=== PATIENT | female | born 1990 | race Caucasian/White ===

== ENCOUNTER 2016-07-31 01:26 | Emergency (ER) | payer MEDICAID, OTHER ==
[~2016-07-31] VITALS: Ht 175.3 cm; Wt 63.5 kg
--- OUTSIDE RECORDS SUMMARY | 2016-07-31 01:33 | XMS REPORT ---
Author Author ELFEGO BRADY Organization [employer] Address Unknown Phone Unavailable Care Team Providers Care Band Cutter Name Role Phone ELFEGO BRADY CP Unavailable Allergies No Known Allergies Problems Problem Type Condition Code Onset Dates Condition Status Problem Knee pain, bilateral M25.561 Active Medications Medication Code System Code Instructions Start Date End Date Status Dosage Fluoxetine HCl [facility] [address]-04 20 mg Orally Once a day in the morning 1 tablet Results No Known Results Summary Purpose [employer] Submission
[2016-07-31] MEDS ORDERED: AMOXICILLIN 500 MG (POLYMOX) CAP PO STA (03:02)
[2016-07-31] MEDS ORDERED: HYDROcodone/APAP 5 MG/325 MG (LORTAB) TAB PO ONE (03:15)
[2016-07-31] MEDS ORDERED: LIDOCAINE 2% VISCOUS 15 ML UDC MM ONE (03:15)
[2016-07-31] MEDS ORDERED: AMOX500C2 PO (03:26)
--- NOTE | 2016-07-31 03:26 | ED General ---
General Chief Complaint: Dental Problems/Pain Stated Complaint: JAW PAIN Nursing Triage Note: r dental pain x 6 days Nursing Sepsis Screen: No Definite Risk Source of Information: Patient Exam Limitations: No Limitations History of Present Illness Time Seen by Provider: 02:30 Initial Comments This 26-year-old woman presents in distress due to pain in the right upper mouth that radiates to the ear and jaw. She believes this is due to a cracked tooth. She has seen a dentist and was advised to have a root canal. However, she cannot afford the root canal. She finished a course of antibiotics about 2 months ago for the same problem. Pain has worsened in recent days. Allergies and Home Medications Allergies Coded Allergies: No Known Drug Allergies (Unverified , 06/19/10) Home Medications Amoxicillin 500 Mg Capsule #40 1,000 MG PO BID Prescribed by: MATTHEW STACY on 07/31/16 0326 Constitutional: no symptoms reported EENTM: see HPI : No Skin: no symptoms reported Past Mrkzekq-Jfapqf-Rikkqv Hx Patient Social History Alcohol Use: Denies Use Recreational Drug Use: No Smoking Status: Current Everyday Smoker Type Used: Cigarettes Recent Foreign Travel: No Contact w/Someone Who Travel: No Recent Infectious Disease Expo: No Surgeries HX Surgeries: No Respiratory Hx Respiratory Disorders: No Cardiovascular Hx Cardiac Disorders: No Neurological Hx Neurological Disorders: No Reproductive System : No Genitourinary Hx Genitourinary Disorders: No Gastrointestinal Hx Gastrointestinal Disorders: No Musculoskeletal Hx Musculoskeletal Disorders: No Endocrine Hx Endocrine Disorders: No HEENT HX ENT Disorders: No Cancer Hx Cancer: No Psychosocial Hx Psychiatric Problems: No Physical Exam Vital Signs Vital Sign - Last 12Hours 07/31/16 07/31/16 01:34 03:34 Temp 98.4 Pulse 109 Resp 18 B/P 147/67 Pulse Ox 99 Capillary Refill : Less Than 3 Seconds General Appearance: WD/WN Moderate Distress HEENT: PERRL/EOMI TMs Normal Pharynx Normal Other (numerous fillings and caps on her teeth. The second to last molar on the upper right has a posterior crack. There is no evidence of localized infection or abscess.) Neck: Normal Inspection Respiratory: Lungs Clear Normal Breath Sounds No Accessory Muscle Use No Respiratory Distress Cardiovascular: Regular Rate, Rhythm No Edema No Murmur Skin: Normal Color Warm/Dry Progress/Results/Core Measures Results/Orders My Orders Orders-MATTHEW PATTERSON MD Lidocaine 2% Viscous 15 Ml (Xylocaine Vi (07/31/16 03:15) Hydrocodone/Apap 5/325 Tablet (Lortab 5 (07/31/16 03:15) Amoxicillin Capsule (Polymox Capsule) (07/31/16 03:02) Medications Given in ED Current Medications Medications Dose Ordered Sig/Evelio Route Start Time Stop Time Status Last Admin Dose Admin Acetaminophen/ Hydrocodone Bitart 1 tab ONCE ONCE PO 07/31/16 03:15 07/31/16 03:16 DC 07/31/16 03:12 1 TAB Lidocaine HCl 15 ml ONCE ONCE MM 07/31/16 03:15 07/31/16 03:16 DC 07/31/16 03:12 15 ML Vital Signs/I&O Vital Sign - Last 12Hours 07/31/16 07/31/16 01:34 03:34 Temp 98.4 98.0 Pulse 109 99 Resp 18 18 B/P 147/67 Pulse Ox 99 Blood Pressure Mean: 93 Progress Note : Progress Note Patient was treated with amoxicillin and a hydrocodone tablet. Anesthetic gauze pads were dispensed with precautions. Departure Impression Impression: Primary Impression: Pain, dental Disposition: HOME, SELF-CARE Condition: Improved Departure-Patient Inst. Decision time for Depature: 03:00 Referrals: [facility] (PCP/Family) Primary Care Physician Patient Instructions: Dental Pain (DC) Add. Discharge Instructions: Follow-up with the dentist as soon as possible for definitive treatment. You may use ibuprofen up to 600 mg every 6 hours as needed for pain. Add Tylenol up to 1000 mg every 6 hours as needed for additional pain relief. Avoid sugary foods and drinks, acidic foods and drinks, or foods and drinks of temperature extremes. [place] your teeth gently at least twice daily. You may use the anesthetic gauze pads provided. Use them with caution as they will numb your mouth and throat. Eat and drink cautiously after using them and do not fall sleep with anesthetic gauze pads in your mouth. All discharge instructions reviewed with patient and/or family. Voiced understanding. Scripts Amoxicillin 500 Mg Capsule1,000 Mg PO BID #40 CAP Ref 1 Prov:MATTHEW PATTERSON MD 07/31/16 MATTHEW PATTERSON MD Jul 31, 2016 03:26
[2016-07-31 03:34] VITALS: BP 138/68
== END 2016-07-31 03:35 | disposition home or self-care (01) ==
LOC: EDUNIT# 01:26 → ER 01:29
DX: K08.9 Disorder of teeth and supporting structures, unspecified (principal); F17.210 Nicotine dependence, cigarettes, uncomplicated
CPT/HCPCS: 99282

== ENCOUNTER 2019-10-28 12:55 | Emergency (ER) | payer SELFPAY ==
[~2019-10-28] VITALS: Ht 177 cm; Wt 70.0 kg
[~2019-10-28 12:55] MED LIST: AMOX500C2 PO
[2019-10-28 13:20] LABS: CLARITY,URINE CLEAR; COLOR,URINE YELLOW; GLUCOSE, URINE (UA) NEGATIVE (NEGATIVE); KETONES,URINE TRACE (NEGATIVE); LEUKOCYTE ESTERASE ,URINE 1+ (NEGATIVE); NITRITE,URINE NEGATIVE (NEGATIVE); PROTEIN,URINE 2+ (NEGATIVE)
[2019-10-28] MEDS ORDERED: NS IV 1000 ML 1,000 ML IV SCH (13:33)
[2019-10-28 13:34] LABS: BACTERIA,URINE MODERATE /HPF; BILIRUBIN,URINE 1+ (NEGATIVE)
--- NOTE | 2019-10-28 13:41 | ED Back Pain ---
General Chief Complaint: - Urinary Stated Complaint: SIDE PAIN Nursing Triage Note: Pt presents with L flank pain without radiation. Also reports burning, frequency, and urgency. Nursing Sepsis Screen: No Definite Risk Source of Information: Patient Exam Limitations: No Limitations History of Present Illness Date Seen by Provider: October 28, 2019 Time Seen by Provider: 13:23 Initial Comments Awoke patient went into the room to discuss that she presents to the ER by private conveyance for 3 or 4 days progressively worsening, gradual onset left flank pain that is constant with pressure. She has no history of hurting her back. She is not doing anything strenuous when it started she thought maybe she just slept on it wrong at night. She has been using ibuprofen routinely which does give her some relief but does not take it away. Her last dose of ibuprofen she took 800 mg 2-3 hours prior to arrival. She is not having dysuria, hematuria, discharge, dyspareunia, fevers chills nausea vomiting diarrhea. No history of abdominal surgeries or endoscopy. No significant medical history. She does not take medicines or control. Her last menstrual period was approximately one month ago and she is expecting to start any time. She does not follow with a doctor. Allergies and Home Medications Allergies Coded Allergies: No Known Drug Allergies (Unverified , 06/19/10) Home Medications Amoxicillin 500 Mg Capsule, 1,000 MG PO BID Prescribed by: MATTHEW STACY on 07/31/16 0326 Patient Home Medication List Home Medication List Reviewed: Yes Review of Systems Constitutional: No chills, No diaphoresis, No fever EENTM: No hearing loss, No ear pain Respiratory: No cough, No short of breath Cardiovascular: No chest pain, No edema Gastrointestinal: No abdominal pain, No constipation, No diarrhea, No nausea Genitourinary: see HPI; No discharge, No dysuria, No frequency, No hematuria : No LMP: Sep 24, 2019 Control/STD Prophylaxis: None Musculoskeletal: see HPI, back pain; No joint pain, No muscle pain, No muscle stiffness, No muscle twitching, No muscle weakness, No neck pain Skin: No change in color, No change in hair/nails Psychiatric/Neurological: Denies Anxiety, Denies Depressed All Other Systems Reviewed Negative Unless Noted: Yes Past Gatykpq-Mglpdk-Dmoawv Hx Patient Social History Alcohol Use: Denies Use Recreational Drug Use: No Smoking Status: Current Everyday Smoker Type Used: Cigarettes 2nd Hand Smoke Exposure: Yes Recent Foreign Travel: No Contact w/Someone Who Travel: No Recent Infectious Disease Expo: No Recent Hopitalizations: No Physical Abuse: No Sexual Abuse: No Mistreated: No Fear: No Seasonal Allergies Seasonal Allergies: No Past Medical History Surgeries: No Respiratory: No Cardiac: No Neurological: No Genitourinary: No Gastrointestinal: No Musculoskeletal: No Endocrine: No HEENT: No Cancer: No Psychosocial: No Integumentary: No Blood Disorders: No Physical Exam Vital Signs Vital Signs - First Documented 10/28/19 13:10 Temp 37.0 Pulse 110 Resp 16 B/P (MAP) 114/89 (97) Pulse Ox 99 O2 Delivery Room Air Capillary Refill : Less Than 3 Seconds Height, Weight, BMI Height: 5'9" Weight: 140lbs. oz. [id number]; 22.00 BMI Method:Stated General Appearance: Anxious, Mild Distress (restless, tearful) HEENT: PERRL/EOMI, Pharynx Normal, Moist Mucous Membranes Neck: Full Range of Motion, Normal Inspection Cardiovascular: Regular Rate, Rhythm, No Edema, Normal Peripheral Pulses Respiratory: Lungs Clear, Normal Breath Sounds, No Accessory Muscle Use, No Respiratory Distress Peripheral Pulses: 2+ Radial Pulses (R), 2+ Radial Pulses (L) Gastrointestinal: Normal Bowel Sounds, Non Tender, Soft Back: Normal Inspection, No Vertebral Tenderness, CVA Tenderness (L) (to percussion); No Decreased Range of Motion Extremity: Normal Capillary Refill, Normal Inspection, No Pedal Edema Neurologic/Psychiatric: Alert, Oriented x3, No Motor/Sensory Deficits Skin: Other (No erythema, rash or pruritus) Progress/Results/Core Measures Results/Orders Lab Results Laboratory Tests Test 10/28/19 13:05 10/28/19 14:12 Range/Units Urine Color YELLOW Urine Clarity CLEAR Urine pH 6.0 5-9 Urine Specific [place] 1.025 H 1.016-1.022 Urine Protein 2+ H NEGATIVE Urine Glucose (UA) NEGATIVE NEGATIVE Urine Ketones TRACE H NEGATIVE Urine Nitrite NEGATIVE NEGATIVE Urine Bilirubin 1+ H NEGATIVE Urine Urobilinogen 4.0 < = 1.0 MG/DL Urine Leukocyte Esterase 1+ H NEGATIVE Urine RBC (Auto) 2+ H NEGATIVE Urine RBC 5-10 H /HPF Urine WBC 10-25 H /HPF Urine Squamous Epithelial Cells 5-10 /HPF Urine Crystals NONE /LPF Urine Bacteria MODERATE H /HPF Urine Casts NONE /LPF Urine Mucus NEGATIVE /LPF Urine Culture Indicated YES Urine Opiates Screen NEGATIVE NEGATIVE Urine Oxycodone Screen NEGATIVE NEGATIVE Urine Methadone Screen NEGATIVE NEGATIVE Urine Propoxyphene Screen NEGATIVE NEGATIVE Urine Barbiturates Screen NEGATIVE NEGATIVE Ur Tricyclic Antidepressants Screen NEGATIVE NEGATIVE Urine Phencyclidine Screen NEGATIVE NEGATIVE Urine Amphetamines Screen POSITIVE H NEGATIVE Urine Methamphetamines Screen POSITIVE H NEGATIVE Urine Benzodiazepines Screen POSITIVE H NEGATIVE Urine Cocaine Screen NEGATIVE NEGATIVE Urine Cannabinoids Screen NEGATIVE NEGATIVE White Blood Count 12.9 H 4.3-11.0 10^3/uL Red Blood Count 4.08 L 4.35-5.85 10^6/uL Hemoglobin 12.9 11.5-16.0 G/DL Hematocrit 37 35-52 % Mean Corpuscular Volume 91 80-99 FL Mean Corpuscular Hemoglobin 32 25-34 PG Mean Corpuscular Hemoglobin Concent 35 32-36 G/DL Red Cell Distribution Width 11.6 10.0-14.5 % Platelet Count 214 130-400 10^3/uL Mean Platelet Volume 9.6 7.4-10.4 FL Neutrophils (%) (Auto) 77 H 42-75 % Lymphocytes (%) (Auto) 9 L 12-44 % Monocytes (%) (Auto) 13 H 0-12 % Eosinophils (%) (Auto) 0 0-10 % Basophils (%) (Auto) 0 0-10 % Neutrophils # (Auto) 10.0 H 1.8-7.8 X 10^3 Lymphocytes # (Auto) 1.2 1.0-4.0 X 10^3 Monocytes # (Auto) 1.7 H 0.0-1.0 X 10^3 Eosinophils # (Auto) 0.0 0.0-0.3 10^3/uL Basophils # (Auto) 0.0 0.0-0.1 10^3/uL Sodium Level 138 135-145 MMOL/L Potassium Level 3.2 L 3.6-5.0 MMOL/L Chloride Level 103 98-107 MMOL/L Carbon Dioxide Level 24 21-32 MMOL/L Anion Gap 11 5-14 MMOL/L Blood Urea Nitrogen 11 7-18 MG/DL Creatinine 0.82 0.60-1.30 MG/DL Estimat Glomerular Filtration Rate > 60 BUN/Creatinine Ratio 13 Glucose Level 136 H 70-105 MG/DL Calcium Level 8.8 8.5-10.1 MG/DL Corrected Calcium 9.0 8.5-10.1 MG/DL Total Bilirubin 0.2 0.1-1.0 MG/DL Aspartate Amino Transf (AST/SGOT) 11 5-34 U/L Alanine Aminotransferase (ALT/SGPT) 11 0-55 U/L Alkaline Phosphatase 80 40-136 U/L Total Protein 7.1 6.4-8.2 GM/DL Albumin 3.8 3.2-4.5 GM/DL Lipase 9 8-78 U/L My Orders Orders - ROGERS WHITE Ua Culture If Indicated (10/28/19 13:01) Urine Bedside (10/28/19 13:01) Drug Screen Stat (Urine) (10/28/19 13:31) Cbc With Automated Diff (10/28/19 13:31) Comprehensive Metabolic Panel (10/28/19 13:31) Hs C Reactive Protein (10/28/19 13:31) Ed Iv/Invasive Line Start (10/28/19 13:33) Ns Iv 1000 Ml (Sodium Chloride 0.9%) (10/28/19 13:33) Ketorolac Injection (Toradol Injection) (10/28/19 13:45) Lipase (10/28/19 13:34) Urine Culture (10/28/19 13:05) Ceftriaxone For Iv Use (Rocephin For I (10/28/19 13:45) Ct Abd/Pelvis Wo(Kidney Stone) (10/28/19 13:41) Medications Given in ED Current Medications Medications Dose Ordered Sig/Evelio Route Start Time Stop Time Status Last Admin Dose Admin Ceftriaxone Sodium 1000 mg/ Sterile Water 10 ml @ 200 mls/hr ONCE ONCE IV 10/28/19 13:45 10/28/19 13:47 DC 10/28/19 14:23 200 MLS/HR Ketorolac Tromethamine 15 mg ONCE ONCE IVP 10/28/19 13:45 10/28/19 13:46 DC 10/28/19 14:23 15 MG Vital Signs/I&O 10/28/19 13:10 Temp 37.0 Pulse 110 Resp 16 B/P (MAP) 114/89 (97) Pulse Ox 99 O2 Delivery Room Air Blood Pressure Mean: 97 Progress Progress Note #1: Time: 13:39 Progress Note Kidney stone versus pyelonephritis versus organic back pain versus other? Patient has red and white blood cells in her urine. She has a heart rate of 110 likely due to pain. She has a significant elevated white count and treat her more aggressively. Plan to put her on Rocephin and give her a liter of fluids. We'll going get a CAT scan of her abdomen pelvis without IV contrast to rule out ureterolithiasis. Progress Note #2: Time: 15:02 Progress Note The patient's symptoms have significantly improved after fluids and pain medicine. She is much more comfortable. We did offer her observation stay based on her meeting sepsis criteria with a 12.9 and white count and tachycardia. I suspect her tachycardia however is more related to her methamphetamine use. After a bag of fluids her heart rate is now down into the 90s. The patient adamantly declined staying in the hospital. She would prefer to do this outpatient and I think that is appropriate still at this juncture. She's had no nausea and should be able to tolerate bactrim for 10 days. We have given her strong return precautions if things get worse and she said she would. Diagnostic Imaging Diagonstic Imaging: CT (without IV contrast, kidney stone protocol.) Plain Films/CT/US/NM/MRI: abdomen, pelvis Comments NAME: CLARE ORDOÑEZ [facility] REC#: [id number] PT STATUS: REG ER : 1990 PHYSICIAN: ROGERS WHITE MD ADMIT DATE: 10/28/19/ER Draft Date of Exam:10/28/19 CT ABD/PELVIS WO(KIDNEY STONE) EXAMINATION: CT Abdomen/Pelvis without contrast. TECHNIQUE: Multiple contiguous axial images were obtained through the abdomen and pelvis without the use of intravenous contrast. All CT scans use one or more of the following dose optimizing techniques: automated exposure control, MA and/or KvP adjustment based on a patient size and exam type, or iterative reconstruction. HISTORY: Left flank pain. COMPARISON: None available. FINDINGS: Limited views of the lower thorax are unremarkable. The liver is normal without focal lesion. There is no biliary ductal dilation. Gallbladder is normal. Pancreas is normal. Spleen is normal. Adrenal glands are normal. The left kidney is enlarged relative to the right with perinephric stranding. There is some left periureteral stranding as well. No ureteral calculi are seen. No renal stones are seen. There is no hydronephrosis. Urinary bladder is normal. Visualized bowel is normal in caliber without obstruction or inflammation. No free fluid or air. No abdominal or pelvic lymphadenopathy. Aorta is normal in caliber without aneurysm. There are no suspicious osseus lesions. IMPRESSION: Asymmetric enlargement of the left kidney with mallika-renal and ureteral stranding but no stones or hydronephrosis. Findings are most suggestive of pyelonephritis. Dictated on workstation # [id number] Dict: 10/28/19 1449 Trans: 10/28/19 1453 [id number] Interpreted by: KANE ZACARIAS MD Electronically signed by: Reviewed: Reviewed by Me Departure Impression Primary Impression: Pyelonephritis Disposition: HOME, SELF-CARE Condition: Improved Departure-Patient Inst. Decision time for Depature: 15:00 Referrals: NO,LOCAL PHYSICIAN (PCP/Family) Primary Care Physician Patient Instructions: Kidney Infection (DC) Add. Discharge Instructions: You need to drink lots of fluids over the next week or 2 to help clear your kidneys. Bactrim one tablet twice a day for the next 10 days. Please take this to completion. If you have nausea take Zofran 1 tablet every 6 hours as needed and place under your tongue. Return to the ER promptly if you have intractable nausea, pain or other worrisome symptoms. Expect to see significant improvement over the next 3-4 days on antibiotics. You may start the Bactrim tonight or tomorrow morning. All discharge instructions reviewed with patient and/or family. Voiced understanding. Scripts Ondansetron (Ondansetron Odt) 4 Mg Tab.rapdis 4 MG PO Q6H PRN for NAUSEA/VOMITING, #8 TAB 0 Refills Prov: ROGERS WHITE 10/28/19 Sulfamethoxazole/Trimethoprim (Bactrim Ds Tablet) 1 Each Tablet 1 EACH PO BID for 10 Days, #20 TAB 0 Refills Prov: ROGERS WHITE 10/28/19 ROGERS WHITE October 28, 2019 13:41
[2019-10-28] MEDS ORDERED: KETOROLAC 30 MG/ML VIAL IVP ONE (13:45)
[2019-10-28] MEDS ORDERED: cefTRIAXone FOR IV USE 1,000 MG in WATER (STERILE) FOR INJECTION 10 ML IV ONE (13:45)
[2019-10-28 14:30] LABS: AMPHETAMINE SCREEN, URINE POSITIVE (NEGATIVE); BARBITURATE SCREEN URINE NEGATIVE (NEGATIVE); BENZODIAZEPINES SCREEN URINE POSITIVE (NEGATIVE); CANNABINOID SCREEN, URINE NEGATIVE (NEGATIVE); COCAINE SCREEN URINE NEGATIVE (NEGATIVE); METHADONE STAT NEGATIVE (NEGATIVE); METHAMPHETAMINE SCREEN URINE S POSITIVE (NEGATIVE); OPIATE SCREEN URINE NEGATIVE (NEGATIVE); OXYCODONE STAT NEGATIVE (NEGATIVE); PROPOXYPHENE STAT NEGATIVE (NEGATIVE); TRICYCLIC ANTIDEPRESSANTS SCRE NEGATIVE (NEGATIVE)
[2019-10-28 14:32] LABS: BASOPHILS % (AUTO) 0 % (0-10); EOSINOPHILS % (AUTO) 0 % (0-10); HEMATOCRIT 37 % (35-52); HEMOGLOBIN 12.9 G/DL (11.5-16.0); LYMPHOCYTES # (AUTO) 1.2 X 10^3 (1.0-4.0); LYMPHOCYTES % (AUTO) 9 % (12-44); MEAN CORPUSCULAR HEMOGLOBIN 32 PG (25-34); MEAN CORPUSCULAR HGB CONC 35 G/DL (32-36); MEAN CORPUSCULAR VOLUME 91 FL (80-99); MEAN PLATELET VOLUME 9.6 FL (7.4-10.4); MONOCYTES # (AUTO) 1.7 X 10^3 (0.0-1.0); MONOCYTES % (AUTO) 13 % (0-12); NEUTROPHILS % (AUTO) 77 % (42-75); PLATELET COUNT 214 10^3/uL (130-400); RED CELL DISTRIBUTION WIDTH 11.6 % (10.0-14.5); WHITE BLOOD COUNT 12.9 10^3/uL (4.3-11.0)
[2019-10-28 14:45] LABS: ALBUMIN 3.8 GM/DL (3.2-4.5); CHLORIDE 103 MMOL/L (98-107); POTASSIUM 3.2 MMOL/L (3.6-5.0); SODIUM 138 MMOL/L (135-145)
[2019-10-28 14:46] LABS: CALCIUM 8.8 MG/DL (8.5-10.1)
[2019-10-28 14:48] LABS: GLUCOSE 136 MG/DL (70-105); TOTAL PROTEIN 7.1 GM/DL (6.4-8.2)
[2019-10-28 14:49] LABS: BILIRUBIN,TOTAL 0.2 MG/DL (0.1-1.0); CARBON DIOXIDE 24 MMOL/L (21-32)
[2019-10-28 14:51] LABS: ALKALINE PHOSPHATASE 80 U/L (40-136); CREATININE SERUM 0.82 MG/DL (0.60-1.30); GFR ESTIMATED > 60
[2019-10-28 14:52] LABS: BUN/CREATININE RATIO 13
[2019-10-28 14:54] LABS: ALANINE AMINOTRANSFERASE 11 U/L (0-55)
--- NOTE | 2019-10-28 14:54 | Diagnostic Imaging Report ---
EXAMINATION: CT Abdomen/Pelvis without contrast. TECHNIQUE: Multiple contiguous axial images were obtained through the abdomen and pelvis without the use of intravenous contrast. All CT scans use one or more of the following dose optimizing techniques: automated exposure control, MA and/or KvP adjustment based on a patient size and exam type, or iterative reconstruction. HISTORY: Left flank pain. COMPARISON: None available. FINDINGS: Limited views of the lower thorax are unremarkable. The liver is normal without focal lesion. There is no biliary ductal dilation. Gallbladder is normal. Pancreas is normal. Spleen is normal. Adrenal glands are normal. The left kidney is enlarged relative to the right with perinephric stranding. There is some left periureteral stranding as well. No ureteral calculi are seen. No renal stones are seen. There is no hydronephrosis. Urinary bladder is normal. Visualized bowel is normal in caliber without obstruction or inflammation. No free fluid or air. No abdominal or pelvic lymphadenopathy. Aorta is normal in caliber without aneurysm. There are no suspicious osseus lesions. IMPRESSION: Asymmetric enlargement of the left kidney with mallika-renal and ureteral stranding but no stones or hydronephrosis. Findings are most suggestive of pyelonephritis. Dictated by: Dictated on workstation # [id number]
[2019-10-28 14:55] LABS: LIPASE 9 U/L (8-78)
[2019-10-28] MEDS ORDERED: SULF1TAB35 PO (15:07)
[2019-10-28] MEDS ORDERED: ONDA4TAB11 PO (15:07)
[2019-10-28 15:21] VITALS: BP 112/64
[2019-10-28 15:23] VITALS: BP 115/66
== END 2019-10-28 15:27 | disposition home or self-care (01) ==
LOC: EDUNIT# 12:55 → ER 12:56
DX: N12 Tubulo-interstitial nephritis, not specified as acute or chronic (principal); F17.210 Nicotine dependence, cigarettes, uncomplicated
CPT/HCPCS: 36415; 74176; 80053; 80306; 81000; 83690; 84703; 85025; 86141; 87088

== ENCOUNTER 2021-04-09 20:36 | Emergency (ER) | payer OTHER ==
[~2021-04-09] VITALS: Ht 175.3 cm; Wt 68.0 kg
[~2021-04-09 20:36] MED LIST changes: +ONDA4TAB11 PO; +SULF1TAB38 PO
[2021-04-09] MEDS ORDERED: LACTATED RINGERS 1,000 ML IV ONE (21:00)
[2021-04-09] MEDS ORDERED: NS 100 ML (IVPB) BAG IV ONE (21:30)
[2021-04-09] MEDS ORDERED: HOLD METFORMIN - RECEIVED CONTRAST 20 ML VIAL IV SCH (21:30)
[2021-04-09] MEDS ORDERED: IOHEXOL 350 MG/ML 100 ML (OMNIPAQUE 350) VIAL IV ONE (21:30)
[2021-04-09 22:01] LABS: BASOPHILS % (AUTO) 0 % (0-10); EOSINOPHILS % (AUTO) 0 % (0-10); HEMATOCRIT 38 % (35-52); HEMOGLOBIN 13.1 g/dL (11.5-16.0); LYMPHOCYTES # (AUTO) 1.7 10^3/uL (1.0-4.0); LYMPHOCYTES % (AUTO) 10 % (12-44); MEAN CORPUSCULAR HEMOGLOBIN 33 pg (25-34); MEAN CORPUSCULAR HGB CONC 34 g/dL (32-36); MEAN CORPUSCULAR VOLUME 95 fL (80-99); MEAN PLATELET VOLUME 9.7 fL (9.0-12.2); MONOCYTES # (AUTO) 1.1 10^3/uL (0.0-1.0); MONOCYTES % (AUTO) 6 % (0-12); NEUTROPHILS # (AUTO) 14.3 10^3/uL (1.8-7.8); NEUTROPHILS % (AUTO) 83 % (42-75); PLATELET COUNT 260 10^3/uL (130-400); WHITE BLOOD COUNT 17.2 10^3/uL (4.3-11.0)
[2021-04-09 22:14] LABS: ALBUMIN 4.2 GM/DL (3.2-4.5); CHLORIDE 106 MMOL/L (98-107); LYMPHOCYTES % (MANUAL) 7 %; MONOCYTES % (MANUAL) 12 %; NEUTROPHILS % (MANUAL) 81 %; POTASSIUM 3.7 MMOL/L (3.6-5.0); RBC MORPH NORMAL; SODIUM 141 MMOL/L (135-145)
[2021-04-09 22:15] LABS: AMYLASE 73 U/L (25-125); CALCIUM 9.1 MG/DL (8.5-10.1)
[2021-04-09 22:17] LABS: GLUCOSE 96 MG/DL (70-105)
[2021-04-09 22:18] LABS: BILIRUBIN,TOTAL 0.2 MG/DL (0.1-1.0); CARBON DIOXIDE 23 MMOL/L (21-32)
[2021-04-09 22:20] LABS: ALKALINE PHOSPHATASE 49 U/L (40-136)
[2021-04-09 22:21] LABS: CREATININE SERUM 0.77 MG/DL (0.60-1.30); GFR ESTIMATED 87
[2021-04-09 22:22] LABS: BUN/CREATININE RATIO 14
[2021-04-09 22:23] LABS: ALANINE AMINOTRANSFERASE 16 U/L (0-55)
[2021-04-09 22:24] LABS: CREATINE KINASE 141 U/L (29-168); LIPASE 17 U/L (8-78)
[2021-04-09 22:31] LABS: CREATINE KINASE MB 1.4 NG/ML (<6.6)
[2021-04-09] MEDS ORDERED: fentaNYL INJ 100 MCG/2 ML AMP IVP STA ×2 (22:47→23:47)
[2021-04-09] MEDS ORDERED: ONDANSETRON 4 MG/2 ML (SDV) Z0FRAN IVP ONE (23:00)
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
[2021-04-09 23:11] LABS: BILIRUBIN,URINE NEGATIVE (NEGATIVE); CLARITY,URINE CLEAR; COLOR,URINE YELLOW; GLUCOSE, URINE (UA) NEGATIVE (NEGATIVE); KETONES,URINE NEGATIVE (NEGATIVE); LEUKOCYTE ESTERASE ,URINE NEGATIVE (NEGATIVE); NITRITE,URINE NEGATIVE (NEGATIVE); PH,URINE 6.5 (5-9); PROTEIN,URINE NEGATIVE (NEGATIVE)
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
[2021-04-09 23:22] LABS: AMPHETAMINE SCREEN, URINE NEGATIVE (NEGATIVE); BACTERIA,URINE NEGATIVE /HPF; BARBITURATE SCREEN URINE NEGATIVE (NEGATIVE); BENZODIAZEPINES SCREEN URINE NEGATIVE (NEGATIVE); CANNABINOID SCREEN, URINE NEGATIVE (NEGATIVE); COCAINE SCREEN URINE NEGATIVE (NEGATIVE); METHADONE STAT NEGATIVE (NEGATIVE); METHAMPHETAMINE SCREEN URINE S NEGATIVE (NEGATIVE); OPIATE SCREEN URINE NEGATIVE (NEGATIVE); OXYCODONE STAT NEGATIVE (NEGATIVE); PROPOXYPHENE STAT NEGATIVE (NEGATIVE); TRICYCLIC ANTIDEPRESSANTS SCRE NEGATIVE (NEGATIVE)
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
[2021-04-09] MEDS ORDERED: CYCL10TA9 PO (23:53)
[2021-04-09] MEDS ORDERED: NAPR500T8 PO (23:53)
[2021-04-09] MEDS ORDERED: TRAM-42 PO (23:53)
[2021-04-10 00:11] VITALS: BP 131/117
== END 2021-04-10 00:12 ==
LOC: EDUNIT# 20:36 → ER 20:39
DX: S16.1XXA Strain of muscle, fascia and tendon at neck level, initial encounter (principal); S00.83XA Contusion of other part of head, initial encounter; S20.212A Contusion of left front wall of thorax, initial encounter; S30.1XXA Contusion of abdominal wall, initial encounter; S09.90XA Unspecified injury of head, initial encounter; R40.2410 Glasgow coma scale score 13-15, unspecified time; Y04.2XXA Assault by strike against or bumped into by another person, initial encounter
CPT/HCPCS: 70450; 70486; 71045; 71260; 72125; 74177; 80053; 80306; 81000; 82150; 82550; 82553; 83690; 83874; 84703; 85007; 85027; 93041; 99284; G0480; 36415; 80320; 96361; 96374; 96375; 96376